=== PATIENT | male | born 2000 | race African-American/Black ===

== ENCOUNTER 2020-06-17 15:29 | Emergency (ER) | payer BC, OTHER ==
[~2020-06-17] VITALS: Ht 182.9 cm; Wt 63.5 kg
[2020-06-17 15:36] VITALS: BP 114/67
== END 2020-06-17 20:09 | disposition left against medical advice (07) ==
LOC: EDBD 15:29 → ER 15:29
DX: R42 Dizziness and giddiness (principal); F12.10 Cannabis abuse, uncomplicated; E86.0 Dehydration
CPT/HCPCS: 70450; 71045; 93005; 99284; J7030